=== PATIENT | male | born 1950 | race Caucasian/White ===

== ENCOUNTER → 2017-05-11 | Outpatient (CLI) | payer OTHER ==
--- NOTE | 2017-05-12 16:20 | US ---
EXAM DESCRIPTION: Venous,Lower Extremity RT CLINICAL HISTORY: EDEMA COMPARISON: None Available TECHNIQUE: Duplex images of the common femoral vein, superficial femoral vein, popliteal, peroneal and posterior tibial veins of the right lower extremity were submitted FINDINGS: All of the above-mentioned venous structures demonstrate normal spontaneous flow with respiratory phasicity and were fully compressible. IMPRESSION: No sonographic evidence of acute DVT within the right lower extremity. Electronically signed by: Shawn Silverio MD 05/12/2017 4:19 PM CDT
== END ==
LOC: US 15:47
PROVIDERS: ATTEND Emergency Medicine
DX: R60.9 Edema, unspecified (principal)

== ENCOUNTER 2018-11-30 01:52 | Emergency (ER) | payer OTHER ==
[2018-11-30 02:25] VITALS: TEMP 97.5
[2018-11-30] MEDS ORDERED: MORPHINE SULFATE INJ 10 MG/ML VIAL IV ONE ×2 (02:54→03:50)
--- NOTE | 2018-11-30 02:59 | ED.PDOC ---
History of Present Illness - General Chief Complaint: Abdominal Pain Stated Complaint: n/v, abd pain distention Time Seen by Provider: 11/30/18 02:22 Source: patient, family Exam Limitations: no limitations - History of Present Illness Initial Comments: Patient and his give the history. He has had RUQ pain for two days. It is sharp in nature, constant, non-radiating, worse with movement, better with rest, associated with "dry heaves", denies previous episodes in that area but has had episodes of abdominal pain before. His last BM was two days ago. He says that his pcp gave him "something to clean me out" that he took two days ago but he has not had a B M, yet. He says that he is still able to eat. Not affected by eating. He is s/p cholecystectomy and has had "9 lumbar surgeries" where they "went in through the front". He has been taking hydrocodone for chronic lumbar pain but says he has not taken it in "9 days" because of the nausea. No other complaints. Timing/Duration: other - two days Severity: moderate Improving Factors: rest Worsening Factors: movement Associated Symptoms: other - as in HPI Allergies/Adverse Reactions: Allergies NO KNOWN ALLERGY Allergy (Unverified 05/11/15 08:35) Home Medications: Ambulatory Orders Promethazine Tab [Phenergan Tablet] 25 mg PO Q6H PRN #6 tab 05/11/15 Amlodipine Besylate 5 mg PO 11/30/18 HYDROcodone 10MG/APAP 325MG [[place] 10/325] 0 ea PO .Q4H 11/30/18 Hydrochlorothiazide 12.5 mg PO 11/30/18 Linaclotide [Linzess] 145 mcg PO PRN 11/30/18 Losartan Potassium 100 mg PO 11/30/18 Review of Systems - Review of Systems Constitutional: States: no symptoms reported EENTM: States: no symptoms reported Respiratory: States: no symptoms reported Cardiology: States: no symptoms reported Gastrointestinal/Abdominal: States: see HPI Genitourinary: States: no symptoms reported Musculoskeletal: States: no symptoms reported Skin: States: no symptoms reported Neurological: States: no symptoms reported Endocrine: States: no symptoms reported Hematologic/Lymphatic: States: no symptoms reported Past Medical History (General) - Patient Medical History Hx Stroke: No Hx Asthma: No Hx of COPD: No Hx Cardiac Disorders: No Hx Congestive Heart Failure: No Hx Pacemaker: No Hx Hypertension: Yes Hx Thyroid Disease: Yes Hx Diabetes: No Hx Renal Disease: No Hx Cancer: No Hx Hepatitis C: No Surgical History: cholecystectomy - Vaccination History Hx Tetanus, Diphtheria Vaccination: No Hx Influenza Vaccination: No Hx Pneumococcal Vaccination: No Immunizations Up to Date: No - Social History Hx Tobacco Use: No Hx Chewing Tobacco Use: No Hx Alcohol Use: No Hx Substance Use: No Hx Substance Use Treatment: No Hx Depression: No Hx Physical Abuse: No Hx Emotional Abuse: No Family Medical History - Family History Father Hx Family Cancer: Yes - Liver Physical Exam - Physical Exam General Appearance: Alert Eye Exam: bilateral normal Ears, Nose, Throat: normal ENT inspection Neck: non-tender, full range of motion, supple Respiratory: lungs clear, normal breath sounds Cardiovascular/Chest: regular rate, rhythm, no edema Gastrointestinal/Abdominal: normal bowel sounds, soft, tenderness - Mild TTP in RUQ Back Exam: no CVA tenderness Extremity: normal range of motion, no pedal edema Skin Exam: normal color Lymphatic: no adenopathy Progress - Progress Progress: 11/30/18 04:14 Laboratory Tests 11/30/18 11/30/18 02:22 02:22 WBC 14.2 H RBC 4.80 Hgb 13.0 L Hct 40.5 L MCV 84.4 MCH 27.1 MCHC 32.1 L RDW 16.1 H Plt Count 525 H MPV 7.3 L Absolute Neuts (auto) 12.30 H Absolute Lymphs (auto) 1.00 Absolute Monos (auto) 0.70 Absolute Eos (auto) 0.10 Absolute Basos (auto) 0.10 Neutrophils % 86.1 H Lymphocytes % 7.4 L Monocytes % 5.2 Eosinophils % 0.5 L Basophils % 0.8 Sodium 136 Potassium 4.2 Chloride 100 L Carbon Dioxide 24 Anion Gap 16.2 BUN 13 Creatinine 1.08 BUN/Creatinine Ratio 12.0 Random Glucose 176 H Serum Osmolality 276.4 Calcium 9.2 Total Bilirubin 0.6 AST 21 ALT 15 Alkaline Phosphatase 115 Serum Total Protein 7.9 Albumin 3.9 Globulin 4.0 H Albumin/Globulin Ratio 1.[address] ab/pelvis with IV contrast was suggestive of duodenitis with perforated bowel. Patient was given morphine 4 mg IV x two. Started on Unasyn 3 grams IV x one and NS one liter IV bolus x one. Transferred to [facility] EJazmyn Ley spoke with Dr. Hancock from surgery, who agreed with the plan and to evaluate the patient at [facility]. Departure - Departure Clinical Impression: Perforated small intestine Disposition: Transfer to Hospital Condition: Fair Departure Forms: ED Discharge - Pt. Copy, Patient Portal Self Enrollment Instructions: DI for Abdominal Pain-Adult Diet: other - NPO Activity: as per physical therapy Referrals: COLT VALENTINE [Primary Care Provider] - 1-2 Weeks Home Medications: Ambulatory Orders Promethazine Tab [Phenergan Tablet] 25 mg PO Q6H PRN #6 tab 05/11/15 Amlodipine Besylate 5 mg PO 11/30/18 HYDROcodone 10MG/APAP 325MG [[place] 10/325] 0 ea PO .Q4H 11/30/18 Hydrochlorothiazide 12.5 mg PO 11/30/18 Linaclotide [Linzess] 145 mcg PO PRN 11/30/18 Losartan Potassium 100 mg PO 11/30/18 Critical Care Note - Critical Care Note Total Time (mins): 65 Transfer to Outside Facility - Transfer Information Accepting Facility: [facility] Reason for Transfer: required specialist not available - General surgery
--- NOTE | 2018-11-30 03:16 | RAD ---
EXAM DESCRIPTION: Chest,1 View CLINICAL HISTORY: 68 years Male, RUQ pain COMPARISON: None. FINDINGS: No consolidation. No pneumothorax. No significant pleural effusion. Cardiac silhouette appears mildly enlarged. Aortic atherosclerosis is present. Osseous structures demonstrate degenerative changes. ACDF changes noted with possible fractured plate. IMPRESSION: 1. No acute cardiopulmonary process. 2. Possible fractured ACDF plate which can be followed up as appropriate. Electronically signed by: Akbar Ghosh MD 11/30/2018 3:13 AM CDT
[2018-11-30] MEDS ORDERED: SODIUM CHLORIDE 0.9% 1000ML 1,000 ML IVS ONE (03:50)
[2018-11-30] MEDS ORDERED: AMPICILLIN & SULBACTAM SODIUM 3 GM in SODIUM CHL 0.9% 100ML MINI-BAG 100 ML IVPB ONE (03:51)
[2018-11-30] MEDS ORDERED: SODIUM CHL 0.9% 100ML MINI-BAG 100 ML IVPB ONE (03:58)
[2018-11-30] MEDS ORDERED: AMPICILLIN & SULBACTAM SODIUM 3 GM VIAL ONE (03:58)
--- NOTE | 2018-11-30 04:03 | CT ---
CT ABDOMEN PELVIS WITH IV CONTRAST Exam date: November 30, 2018 Comparison: CT abdomen pelvis May 11, 2015 Indication: Abdominal pain Technique: Multiple helical axial images were obtained through the abdomen and pelvis using intravenous contrast (100 mL Optiray). Coronal and sagittal reformatted images were obtained. All CT scans at this facility use dose modulation, iterative reconstruction, and/or weight-based dosing when appropriate to reduce radiation dose to as low as reasonably achievable. Findings: Lung bases: [Heart appears mildly enlarged]. Liver: [Homogenous attenuation is noted.] Gallbladder/biliary: [Gallbladder is surgically absent. No significant biliary ductal dilatation.] Pancreas: [Fatty changes demonstrated. Trace stranding of the pancreatic head noted. No evidence of ductal enlargement.] Spleen: Appears unremarkable. No splenomegaly. Adrenals: Unremarkable. Kidneys and ureters: [There is a 1.7 cm cyst in the inferior pole of the left kidney. No evidence of hydronephrosis. Normal enhancement.] Bladder: Unremarkable. Pelvic organs: Unremarkable. Bowel: [The second portion of the duodenum appears mildly thickened with mild adjacent stranding. Postoperative changes of gastric bypass noted. No evidence of bowel obstruction.] Appendix appears unremarkable. Vasculature: Mild aortic atherosclerosis demonstrated. Peritoneum: Trace amount of free air in the upper abdomen near the liver noted. Trace amount of free fluid in the pelvis noted. There is trace free fluid near the liver. Lymph nodes: Unremarkable. Soft tissues: Unremarkable. Bones: Changes of posterior fusion at L5-S1 demonstrated. Degenerative changes of the lumbar spine noted. Impression: 1. Mildly thickened appearance of the second portion of the duodenum with adjacent stranding suggestive of duodenitis. Few foci of free air near the duodenum and liver are suggestive of bowel perforation, perforated duodenal ulcer is most likely. 2. Stranding near the pancreatic head is likely related to duodenitis as above, however underlying acute pancreatitis would be difficult to entirely exclude. THIS REPORT CONTAINS FINDINGS THAT MAY BE CRITICAL TO PATIENT CARE: The findings were verbally discussed via telephone conference with Merlin by Dr. Ghosh at 0347 hours central time on November 30, 2018. The results were acknowledged and understood. Electronically signed by: Akbar Ghosh MD 11/30/2018 4:00 AM CDT
[2018-11-30 04:50] VITALS: BP 168/102; O2SAT 95
== END 2018-11-30 04:49 | disposition short-term general hospital (02) ==
LOC: ER 01:52
DX: K63.1 Perforation of intestine (nontraumatic) (principal); I10 Essential (primary) hypertension; E07.9 Disorder of thyroid, unspecified; G89.29 Other chronic pain; Z79.899 Other long term (current) drug therapy; Z98.890 Other specified postprocedural states; Z90.49 Acquired absence of other specified parts of digestive tract
CPT/HCPCS: 71045; 74177; 80053; 83605; 83690; 85025; J0295; J2270; J7030; J7050

== ENCOUNTER → 2019-01-31 | Outpatient (CLI) | payer OTHER ==
--- NOTE | 2019-01-31 16:37 | CT ---
EXAM DESCRIPTION: CT abdomen and pelvis without and with contrast CLINICAL HISTORY: Spontaneous bacterial peritonitis COMPARISON: 11/30/2018 TECHNIQUE: Spiral CT with multiplanar reformatted images. Multiphase, pre and post intravenous iodinated nonionic contrast This exam was performed according to our departmental dose-optimization program, which includes automated exposure control, adjustment of the mA and/or kV according to patient size and/or use of iterative reconstruction technique. FINDINGS: Previous study demonstrated evidence of perforated duodenal diverticulum. The adjacent large intestine was normal at that time Current CT again demonstrates mild wall thickening of the duodenum compatible with duodenitis. There is soft tissue density inflammatory change in the fat between the duodenum and the large intestine. In addition to the soft tissue inflammation are 2 separate fistula tract tracks one of which is soft tissue and fluid density and the other containing a few bubbles of air image 41-44. A segment of large intestinal wall thickening involving the ascending colon/hepatic flexure. Surrounding soft tissue density stranding and small reactive mesenteric nodes Remainder of the small and large intestine shows no mass lesion or inflammatory process. Postsurgical change of the stomach without acute abnormality Normal appearance of the liver. Previous cholecystectomy. Normal appearance of the spleen, pancreas and kidneys. Stable small right adrenal adenoma No pelvic soft tissue mass lesion, adenopathy or free fluid. No acute bony abnormality. Lumbar spine fusion surgery IMPRESSION: A fistula track is present extending from the lateral wall second portion of the duodenum to the ascending colon. 2 separate fistula tracts one of which is soft tissue /fluid density and the other soft tissue density with a few bubbles of air. Ascending colon/hepatic flexure wall thickening, colitis. Results discussed with Dr. José Sotomayor's nurse practitioner Mild edema/inflammation along the peritoneal surfaces right paracolic gutter. No free fluid in the abdomen Electronically signed by: Jaquan Owens MD 01/31/2019 4:35 PM CDT
== END ==
LOC: CT 08:08
PROVIDERS: ATTEND Emergency Medicine
DX: K65.2 Spontaneous bacterial peritonitis (principal); K63.2 Fistula of intestine; K52.9 Noninfective gastroenteritis and colitis, unspecified

== ENCOUNTER → 2019-03-28 | Outpatient (CLI) | payer OTHER ==
--- NOTE | 2019-03-29 11:31 | CT ---
EXAM DESCRIPTION: Abdomen/Pelvis w/wo Contrast: Computed Tomography. CLINICAL HISTORY: ANEMIA UNSPECIFIED COMPARISON: CT scan of abdomen and pelvis with and without contrast 01/31/2019. TECHNIQUE: Spiral-axial scans at 5 x 5 mm intervals through the abdomen and pelvis before and after Optiray 320 nonionic IV contrast. Water oral contrast. Coronal and sagittal 2.0 mm reconstructions. 5 mm Delayed helical-axial scans, liver through the pubic symphysis. No adverse reactions. Total Exam DLP 4332.04 mGy - cm. This exam was performed according to our departmental CT dose-optimization program which includes automated exposure control, adjustment of the mA and/or kV according to patient size and/or use of iterative reconstruction technique; to reduce radiation dose to as low as reasonably achievable (ALARA). FINDINGS: Terminal Ileum/Cecum: Inflammatory changes in the fat surrounding the cecum and terminal ileum no longer visualized. Appendix seen on the prior study not well visualized. Colon: Decreased inflammatory changes in the fat and fascia adjacent to the ascending colon. No wall thickening or mucosal thickening compared to the prior study. No obstruction. Moderate amount of fecal material ascending transverse and descending colon. Also in the rectosigmoid but no obstruction. Lung bases and pleura: Pleural parenchymal scarring stable in the inferior lingula. Small calcifications coronary arteries again seen. Liver, Stomach, Spleen, Adrenal Glands: Postsurgical changes and hardware around the body of the stomach and gastroesophageal junction stable. Other organs negative. Pancreas, Gallbladder, Ducts: Surgical clips in the gallbladder fossa with no fluid. Normal caliber of the duct. Fatty infiltration of the pancreas stable. Kidneys and Ureters: Negative. Mesentery: Decreased stranding and fascial thickening around the ascending colon as described. No free air or free fluid. Aorta: Normal caliber. Minimal calcifications distally. Ectasia proximal right common iliac artery. Stable. Small Bowel: Fluid in the small bowel most likely water contrast. Minimal gas, no distention or air-fluid levels. Pelvic Organs: No free fluid. Spine and Bony Pelvis: Posterior fusion construct L5-S1 with canal narrowing and left foraminal narrowing at both levels. Spondylosis included thoracic spine. Arthrosis right hip more than left. No change since the prior study. Abdominal Wall/Back Soft Tissues: Surgical scar left lateral to the midline at the level of the mid pelvis. Bilateral fatty inguinal hernias larger on left than right not containing bowel. IMPRESSION: 1. Decreasing inflammatory changes in the ascending colon with normal caliber of the segment and also decreasing inflammatory changes in the surrounding fat and fascia. Compared to January 2019. No free air or free fluid. Appendix is not seen on this study. 2. Other findings are unchanged compared to the prior study. Electronically signed by: Fernando Fabian MD 03/29/2019 11:28 AM CDT
== END ==
LOC: CT 08:30
PROVIDERS: ATTEND Emergency Medicine
DX: D64.9 Anemia, unspecified (principal)

== ENCOUNTER → 2019-05-04 | Outpatient (CLI) | payer OTHER ==
--- NOTE | 2019-05-04 16:11 | RAD ---
EXAM DESCRIPTION: Hip,Right 2 Views CLINICAL HISTORY: 68 years Male, PN IN RIGHT HIP COMPARISON: None available. FINDINGS: Mild diffuse osteopenia of the visualized bones noted. No acute fracture or dislocation. The femoral head is well contained in the acetabular fossa. Severe osteoarthritic changes noted involving the right hip joint with osteophytosis and joint space narrowing. The overlying soft tissues appear grossly unremarkable. IMPRESSION: 1. Advanced right hip osteoarthritic changes. 2. No acute fracture or dislocation. Electronically signed by: Vinny Kirk MD 05/04/2019 4:10 PM CDT
== END ==
LOC: RAD 10:40
PROVIDERS: ATTEND Emergency Medicine
DX: M16.11 Unilateral primary osteoarthritis, right hip (principal)